=== PATIENT | female | born 1940 | race Caucasian/White ===

== ENCOUNTER 2017-10-18 11:53 | Inpatient (IN) | payer OTHER ==
[~2017-10-18] VITALS: Ht 160 cm; Wt 80.7 kg
[2017-10-18 11:54] VITALS: BP 129/58
[2017-10-18] MEDS ORDERED: ASPIR 8181 MG PO (12:33)
[2017-10-18] MEDS ORDERED: SYNTHROID75 MCG PO (12:33)
[2017-10-18] MEDS ORDERED: VITAMIN B-12 PO (12:35)
[2017-10-18] MEDS ORDERED: ZOLOFT50 MG PO (12:35)
[2017-10-18] MEDS ORDERED: VITAMIN D32000 UNI1 PO (12:36)
[2017-10-18] MEDS ORDERED: OMEPRAZOLE 20 M20 M1 PO (12:36)
[2017-10-18] MEDS ORDERED: CALCIUM 500 +1 EAC5 PO (12:36)
[2017-10-18] MEDS ORDERED: PROAIR HFA8.5 GM INH (12:37)
[2017-10-18] MEDS ORDERED: TRAMADOL 50 MG50 MG PO (12:37)
[2017-10-18] MEDS ORDERED: OCUVITE TABLET1 EAC1 PO (12:38)
[2017-10-18] MEDS ORDERED: NAPROSYN500 M1 PO (12:38)
[2017-10-18] MEDS ORDERED: BENTYL 20 MG TA20 M1 PO (12:40)
[2017-10-18] MEDS ORDERED: PREDNISONE 1 MG1 M1 PO (12:41)
[2017-10-18 12:59] LABS: ABSOLUTE BASOPHILS 0.1 thou/uL (0.0-0.2); ABSOLUTE EOSINOPHILS 0.4 thou/uL (0.0-0.7); ABSOLUTE LYMPHOCYTES 1.3 thou/uL (0.8-5.3); ABSOLUTE MONOCYTES 0.8 thou/uL (0.0-1.2); ABSOLUTE NEUTROPHILS 4.9 thou/uL (1.6-8.1); BASOPHILS 1.5 %; EOSINOPHILS 5.1 %; HEMATOCRIT 40.6 % (37.0-47.0); HEMOGLOBIN 13.4 gm/dL (12.0-15.0); LYMPHOCYTES 17.3 %; MCH 29.7 pg (26.0-34.0); MCHC 32.9 g/dL (28.0-37.0); MCV 90.3 fL (80.0-100.0); MONOCYTES 10.3 %; MPV 9.1 fl. (7.2-11.1); NUCLEATED RBCS 0 /100WBC; PLATELET COUNT* 221 thou/uL (150-400); POLYS 65.8 %; RBC 4.49 mil/uL (4.20-5.00); RDW-CV 13.8 % (10.5-14.5); WBC 7.5 thou/uL (4.0-11.0)
[2017-10-18 13:03] LABS: ANION GAP 4 mmol/L (7-16); BUN 21 mg/dL (7-18); CALCIUM 8.6 mg/dL (8.5-10.1); CHLORIDE 106 mmol/L (98-107); CO2 32 mmol/L (21-32); CREATININE 1.1 mg/dL (0.6-1.3); GLUCOSE 101 mg/dL (70-99); POTASSIUM 3.5 mmol/L (3.5-5.1); SODIUM 142 mmol/L (136-145)
[2017-10-18 13:07] LABS: APTT 22.1 Seconds (25.0-31.3)
[2017-10-18 13:08] LABS: ALKALINE PHOSPHATASE 69 U/L (46-116); LIPASE 135 U/L (73-393); SGOT 11 U/L (15-37); SGPT 22 U/L (30-65); TOTAL BILIRUBIN 0.4 mg/dL (<0.1-1.0); TOTAL PROTEIN 5.8 g/dL (6.4-8.2)
[2017-10-18 13:15] LABS: URINE BILIRUBIN NEGATIVE (Negative); URINE BLOOD NEGATIVE (Negative); URINE CLARITY CLEAR; URINE COLOR YELLOW; URINE GLUCOSE-RANDOM NEGATIVE (Negative); URINE KETONES NEGATIVE (Negative); URINE LEUKOCYTES-REFLEX 3+ (Negative); URINE NITRITE-REFLEX NEGATIVE (Negative); URINE PROTEIN NEGATIVE (Negative); URINE UROBILINOGEN 0.2 E.U./dl (0.2-1.0)
[2017-10-18 13:20] LABS: TROPONIN-I LEVEL <0.06 ng/mL (<0.06)
[2017-10-18 13:26] LABS: BACTERIA-REFLEX 1-9 Few /HPF (None Seen); CRYSTALS None Seen /LPF (None Seen); HYALINE CASTS 0-3 Few /LPF (None Seen); MUCUS 4-6 Moderate strn/LPF (None Seen); SQUAMOUS 0-3 Few /LPF (0-3); URINE RBC 0-2 Rare /HPF (0-2)
[2017-10-18 15:46] VITALS: BP 132/60
[2017-10-18 15:57] VITALS: BP 148/59
[2017-10-18 20:00] VITALS: BP 130/53
[2017-10-18 23:54] VITALS: BP 117/45
[2017-10-19] VITALS (9 sets, daily range): BP systolic 127–153; BP diastolic 49–87
[2017-10-19 04:00] LABS: HEMATOCRIT 40.1 % (37.0-47.0); HEMOGLOBIN 13.4 gm/dL (12.0-15.0); MCHC 33.5 g/dL (28.0-37.0); MCV 89.7 fL (80.0-100.0); MPV 8.6 fl. (7.2-11.1); RBC 4.48 mil/uL (4.20-5.00); RDW-CV 14.1 % (10.5-14.5); WBC 7.9 thou/uL (4.0-11.0)
[2017-10-19 04:20] LABS: CALCIUM 8.4 mg/dL (8.5-10.1); CREATININE 0.9 mg/dL (0.6-1.3); MAGNESIUM 2.1 mg/dL (1.8-2.4); POTASSIUM 3.9 mmol/L (3.5-5.1)
--- NOTE | 2017-10-19 16:52 | EKG ---
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
--- NOTE | 2017-10-19 16:56 | EKG ---
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
[2017-10-20] VITALS: BP 151/50
[2017-10-20 04:18] VITALS: BP 111/63
[2017-10-20 08:00] VITALS: BP 137/58
--- NOTE | 2017-10-20 09:24 | CON ---
[address] [address] CONSULTATION Name: ANGEL VALLADARES Room: [address] IN .R.#: [id number] Admission: 10/18/17 Attend Phys: Adebayo Ulloa, Discharge: Date of : 44 Report #: [id number] THIS REPORT FOR: //name// CC: Nik Ayers DO Adebayo Ulloa INDICATION: Syncope and chest pain. HISTORY OF PRESENT ILLNESS: The patient is a very pleasant 77-year-old white female who was admitted to the hospital initially after a syncopal episode at home. She apparently had had some nausea and vomiting and at one point in time when getting up from the bathroom, became very lightheaded and was aided by her daughter to this floor. She states that she was not completely unconscious, but unable to respond for several minutes. She was apparently fairly hypotensive. The patient was somewhat weak for a while after this episode and then evaluated in the hospital. Carotid Dopplers are unremarkable. Telemetry monitoring shows sinus rhythm. Her vital signs are now stable. She has been volume resuscitated. She also states that she has had problems with chest pain for most of her adult life. She has had multiple cardiac tests. Most recently, she was evaluated with a stress test and echocardiogram at [facility]. She had catheterizations on 3 separate occasions, the first being in 1976 and the last being in 1994. On those she was not found to have significant coronary artery disease. After the first cath, it was explained to her that she may have Prinzmetal angina. She had another episode of chest pain here in the hospital last night. The EKG just after the episode was unremarkable. She was given sublingual nitroglycerin here with relief of her discomfort. She is presently without complaint. PAST MEDICAL HISTORY: 1. History of thyroid cancer status post thyroid resection. 2. Hyperlipidemia. 3. Prinzmetal's angina. 4. COPD. 5. Hysterectomy. 6. Right knee replacement. 7. Cholecystectomy. 8. Pain stimulator placed in the back. 9. GERD. ALLERGIES: ANTIBIOTIC of which she cannot recall the name. HOME MEDICATIONS: 1. Levothyroxine. 2. Aspirin 81 mg daily. 3. Vitamin B12 5000 mg daily. 4. Zoloft [address] [place] [address] CONSULTATION Name: VALLADARESANGEL Room: [address]#: [id number] Admission: 10/18/17 Attend Phys: Adebayo Ulloa, Discharge: Date of : 44 Report #: [id number] 5. Os-Zana 500 plus D 600 mg daily. 6. Vitamin D3 2000 units daily. 7. Omeprazole 20 mg daily. 8. Albuterol inhaler 1-2 puffs p.r.n. shortness of breath. 9. Tramadol 50 mg q.6 hours p.r.n. 10. Naprosyn 500 mg p.r.n. 11. Ocuvite tablet daily. 12. Bentyl 20 mg q.i.d. 13. Prednisone 4 mg daily. SOCIAL HISTORY: The patient is a lifelong nonsmoker. She does not drink alcohol. She is . FAMILY HISTORY: Positive for coronary artery disease. REVIEW OF SYSTEMS: Positive for occasional cough productive of clear sputum, COPD, chest discomfort as outlined above, dyspnea, near syncope, syncope, thyroid disease, mild seasonal allergies, arthritis and she wears glasses. Otherwise, 14-point review of systems is unremarkable. PHYSICAL EXAMINATION: VITAL SIGNS: Blood pressure 143/53, pulse 79 and regular. GENERAL: This is a pleasant lady who is in no distress. Mood and affect appropriate. HEENT: The patient is wearing glasses. Extraocular muscles intact. Mucous membranes are moist. NECK: Shows no jugular venous distention. No carotid bruits. CHEST: Reveals clear lung marroquin without wheezes, rales or rhonchi. CARDIOVASCULAR: Reveals a regular rhythm with normal S1 and S2. I do not appreciate gallop or murmur. ABDOMEN: Reveals normal bowel sounds. The abdomen is soft and nontender. EXTREMITIES: Shows no clubbing, cyanosis or edema. Peripheral pulses are 2+ and palpable. SKIN: Warm and dry. LABORATORY DATA: A 12-lead EKG shows sinus rhythm with no significant ST or T-wave abnormalities. Ultrasound, carotids normal. Chest x-ray, no acute process. IMPRESSION AND RECOMMENDATIONS: 1. Syncope, likely vasovagal after episodes of nausea and vomiting. No further workup at this time. 2. Chest pain. The patient has been described as having Prinzmetal's angina [address] [place] [address] CONSULTATION Name: VALLADARESANGEL Room: [address] IN [facility].#: [id number] Admission: 10/18/17 Attend Phys: Adebayo BustilloDarius Laila, Discharge: Date of : 44 Report #: [id number] remotely. Her pain was relieved with nitroglycerin. Coronary spasm is a possibility. I would continue p.r.n. nitrates. I would obtain outside records from [facility]. No further evaluation at this time. From a cardiac standpoint, the patient appears stable. We will follow as needed. <ELECTRONICALLY SIGNED> By: Demar Simental MD, FACC 10/20/17 0924 1617 2248Micsav Simental MD, FACC /nt
[2017-10-20 11:49] VITALS: BP 137/58
== END 2017-10-20 12:49 | disposition home or self-care (01) | DRG 372 ==
LOC: M.ERS 11:53 → M.TBA-ER 14:03 → M.2W 14:03
PROVIDERS: Family Medicine; ADMIT Family Medicine
DX: A04.9 Bacterial intestinal infection, unspecified (principal); R65.10 Systemic inflammatory response syndrome (SIRS) of non-infectious origin without acute organ dysfunction; E44.0 Moderate protein-calorie malnutrition; R55 Syncope and collapse; E78.5 Hyperlipidemia, unspecified; J44.9 Chronic obstructive pulmonary disease, unspecified; K21.9 Gastro-esophageal reflux disease without esophagitis; E03.9 Hypothyroidism, unspecified; G31.9 Degenerative disease of nervous system, unspecified; Z96.651 Presence of right artificial knee joint; Z90.49 Acquired absence of other specified parts of digestive tract; Z85.850 Personal history of malignant neoplasm of thyroid; Z90.710 Acquired absence of both cervix and uterus; Z79.82 Long term (current) use of aspirin; Z79.899 Other long term (current) drug therapy; Z88.1 Allergy status to other antibiotic agents; Z82.49 Family history of ischemic heart disease and other diseases of the circulatory system; Z82.61 Family history of arthritis

== ENCOUNTER → 2018-05-08 | Outpatient (CLI) | payer OTHER ==
[~2018-05-08] MED LIST: ASPIR 8181 MG PO; BENTYL 20 MG TA20 M1 PO; CALCIUM 500 +1 EAC5 PO; NAPROSYN500 M1 PO; OCUVITE TABLET1 EAC1 PO; OMEPRAZOLE 20 M20 M1 PO; PREDNISONE 1 MG1 M1 PO; PROAIR HFA8.5 GM INH; SYNTHROID75 MCG PO; TRAMADOL 50 MG50 MG PO; VITAMIN B-12 PO; VITAMIN D32000 UNI1 PO; ZOLOFT50 MG PO
== END ==
LOC: M.RAD 12:56
DX: J44.1 Chronic obstructive pulmonary disease with (acute) exacerbation (principal); J20.9 Acute bronchitis, unspecified